=== PATIENT | male | born 1970 | race Caucasian/White ===

== ENCOUNTER 2017-10-04 09:53 | Emergency (ER) | payer OTHER ==
[2017-10-04] MEDS ORDERED: DOXYCYCLINE 100 MG CAP PO ONE (10:39)
--- NOTE | 2017-10-04 11:19 | ER ---
Nurse's Notes [facility] Name: Gian Trujillo Age: 47 yrs Sex: Male : 1970 Arrival Date: 10/04/2017 Time: 09:56 Bed 18 Private MD: Out, [facility] Diagnosis: Laceration without foreign body, left foot;Laceration without foreign body, right foot Presentation: 10/04 10:02 Presenting complaint: Patient states: Yesterday he was walking in the water, and he cut aj1 his feet on some mussel shells, He cleaned it all out yesterday, and again today, but he isn't able to walk around the house because when he steps down on his right foot it starts bleeding again. Transition of care: patient was not received from another setting of care. Onset of symptoms was October 03, 2017 at 10:30. Risk Assessment: Do you want to hurt yourself or someone else? Patient reports no desire to harm self or others. Initial Sepsis Screen: Does the patient meet any 2 criteria? No. Patient's initial sepsis screen is negative. Does the patient have a suspected source of infection? No. Patient's initial sepsis screen is negative. Care prior to arrival: None. 10:02 Method Of Arrival: Wheelchair aj1 10:02 Acuity: DEIDRE 4 aj1 Triage Assessment: 10:09 General: Appears in no apparent distress. uncomfortable, Behavior is calm, cooperative, aj1 appropriate for age. Pain: Complains of pain in right foot Pain currently is 6 out of 10 on a pain scale. Neuro: Level of Consciousness is awake, alert, obeys commands. Cardiovascular: Patient's skin is warm and dry. Respiratory: Airway is patent Respiratory effort is even, unlabored, Respiratory pattern is regular, symmetrical. Injury Description: Laceration sustained to right foot was sustained 1 day ago. 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 Last tetanus immunization: up to date. - Social history:: Smoking status: Patient uses tobacco products, smokes one pack cigarettes per day. - Ebola Screening: : Patient denies travel to an Ebola-affected area in the 21 days before illness onset. Screenin:45 Abuse screen: Denies threats or abuse. Nutritional screening: No deficits noted. em Tuberculosis screening: No symptoms or risk factors identified. Fall Risk None identified. Assessment: 10:30 General: Appears in no apparent distress. comfortable, Behavior is calm, cooperative. em Pain: Complains of pain in right foot Pain currently is 5 out of 10 on a pain scale. Neuro: Level of Consciousness is awake, alert, obeys commands, Oriented to person, place, time, situation. Cardiovascular: Capillary refill < 3 seconds Patient's skin is warm and dry. Respiratory: Airway is patent Respiratory effort is even, unlabored, Respiratory pattern is regular, symmetrical. GI: Abdomen is flat. : No signs and/or symptoms were reported regarding the genitourinary system. Derm: Wound noted arch of right foot. Musculoskeletal: Range of motion: intact in all extremities. 10:30 Injury Description: Laceration sustained to right foot is clean, 2.6 to 7.5 cm long, em was sustained 12-24 hours ago. no active bleeding noted at this time. 10:35 Reassessment: I agree with previous assessment. hb 11:46 Reassessment: Patient appears in no apparent distress at this time. Patient and/or em family updated on plan of care and expected duration. Pain level reassessed. Patient is alert, oriented x 3, equal unlabored respirations, skin warm/dry/pink. cleaned wound, applied elan wrap to right leg. Vital Signs: 10:09 BP 104 / 75; Pulse 82; Resp 18; Temp 98.4; Pulse Ox 97% on R/A; Weight 71.67 kg (R); aj1 Height 5 ft. 10 in. (177.80 cm) (R); Pain 6/10; 11:45 BP 114 / 68; Pulse 81; Resp 16; Pulse Ox 98% on R/A; Pain 4/10; em 10:09 Body Mass Index 22.67 (71.67 kg, 177.80 cm) aj1 ED Course: 09:56 Patient arrived in ED. sb2 09:57 Out, [facility] is Private Physician. sb2 10:07 Triage completed. aj1 10:09 Arm band placed on Patient placed in an exam room. aj1 10:12 Marinas, Adeel, QUALITY SYSTEMS TECHNICIAN is PHCP. pm1 10:12 Vincent Garcia MD is Attending Physician. pm1 10:21 Rei Pichardo LVN is Primary Nurse. em 10:58 X-ray completed. Portable x-ray completed in exam room. Patient tolerated procedure la2 well. 11:00 Foot Right 3 View XRAY In Process Unspecified. EDMS 11:45 Patient has correct armband on for positive identification. Placed in gown. Bed in low em position. Call light in reach. Adult w/ patient. 11:45 No provider procedures requiring assistance completed. Patient did not have IV access em during this emergency room visit. Administered Medications: 10:40 Drug: Doxycycline 100 mg Route: PO; em 11:45 Follow up: Response: No adverse reaction em Outcome: 11:19 Discharge ordered by MD. pm1 11:45 Discharged to home with crutches. em 11:45 Condition: good 11:45 Discharge instructions given to patient, family, Instructed on discharge instructions, follow up and referral plans. medication usage, Demonstrated understanding of instructions, follow-up care, medications, crutch walking, Prescriptions given X 1. 11:48 Patient left the ED. em Signatures: Dispatcher [employer] EDMS Lety Devries RN RN aj1 Rei Pichardo LVN LVN em Adeel Cohen NP QUALITY SYSTEMS TECHNICIAN pm1 Aye Disla RN RN Priscilla Reid la2 Angelique Walls2
--- NOTE | 2017-10-04 11:19 | EDPHYS ---
Physician Documentation [facility] Name: Gian Trujillo Age: 47 yrs Sex: Male : 1970 Arrival Date: 10/04/2017 Time: 09:56 Bed 18 Private MD: Out, [facility] ED Physician Vincent Garcia HPI: 10/04 10:59 This 47 yrs old Male presents to ER via Wheelchair with complaints of Lac To pm1 Feet. 10:59 The patient presents with a laceration, 3 cm(s), to right sole of foot and superficial pm1 2 cm laceration to left sole of foot. Context: [place] resulted from an unknown cause, the patient can fully bear weight, the patient is able to ambulate. Onset: The symptoms/episode began/occurred yesterday, at 09:00. Modifying factors: The symptoms are alleviated by not bearing weight the symptoms are aggravated by weight bearing, on right foot. Associated signs and symptoms: Pertinent negatives: calf tenderness, fever, numbness, tingling. Severity of symptoms: in the emergency department the symptoms have improved. Patient was walking in the water and stepped on something with both feet. Patient was bare footed and believes that it might have been some shells. Injury occurred yesterday morning around 0900 and the patient has been washing it clean. The wounds have started healing up and are improved but when he steps on his right foot he starts causing the right foot wound to bleed. Patient with superficial laceration to left foot that he is able to apply weight with and it does not bleed. Tetanus immunization about 2 years ago. 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 Last tetanus immunization: up to date. - Social history:: Smoking status: Patient uses tobacco products, smokes one pack cigarettes per day. - Ebola Screening: : Patient denies travel to an Ebola-affected area in the 21 days before illness onset. ROS: 11:28 MS/extremity: Positive for laceration of the left foot and right foot, Negative for pm1 deformity, foreign body sensation. 11:28 Constitutional: Negative for fever, chills, and weight loss, Eyes: Negative for injury, pain, redness, and discharge, ENT: Negative for injury, pain, and discharge, Neck: Negative for injury, pain, and swelling, Cardiovascular: Negative for chest pain, palpitations, and edema, Respiratory: Negative for shortness of breath, cough, wheezing, and pleuritic chest pain, Abdomen/GI: Negative for abdominal pain, nausea, vomiting, diarrhea, and constipation, Back: Negative for injury and pain. 11:28 Neuro: Negative for headache, weakness, numbness, tingling, and seizure. 11:28 Skin: Positive for laceration(s), of the left foot and right foot. Exam: 11:28 Constitutional: This is a well developed, well nourished patient who is awake, alert, pm1 and in no acute distress. Head/Face: Normocephalic, atraumatic. Chest/axilla: Normal chest wall appearance and motion. Nontender with no deformity. No lesions are appreciated. Cardiovascular: Regular rate and rhythm with a normal S1 and S2. No gallops, murmurs, or rubs. No pulse deficits. Respiratory: Lungs have equal breath sounds bilaterally, clear to auscultation and percussion. No rales, rhonchi or wheezes noted. No increased work of breathing, no retractions or nasal flaring. Abdomen/GI: Soft, non-tender, with normal bowel sounds. No distension or tympany. No guarding or rebound. No evidence of tenderness throughout. Back: No spinal tenderness. No costovertebral tenderness. Full range of motion. 11:28 Skin: Appearance: normal except for affected area, injury, laceration(s), the wound is approximately 3 cm(s), with a depth of 0.5 cm(s), of the arch of right foot, the second wound is approximately 2 cm(s), with a depth of 0.2 cm(s), of the arch of left foot, that can be described as no foreign body, irregular. 11:28 Neuro: Orientation: is normal, Motor: is normal, moves all fours, Sensation: is normal, no obvious gross deficits, Gait: is steady, at a normal pace, without difficulty. Vital Signs: 10:09 BP 104 / 75; Pulse 82; Resp 18; Temp 98.4; Pulse Ox 97% on R/A; Weight 71.67 kg (R); aj1 Height 5 ft. 10 in. (177.80 cm) (R); Pain 6/10; 11:45 BP 114 / 68; Pulse 81; Resp 16; Pulse Ox 98% on R/A; Pain 4/10; em 10:09 Body Mass Index 22.67 (71.67 kg, 177.80 cm) aj1 MDM: 10:13 Patient medically screened. pm1 11:17 Data reviewed: vital signs. Data interpreted: Pulse oximetry: on room air is 97 %. pm1 Interpretation: normal. Counseling: I had a detailed discussion with the patient and/or guardian regarding: the historical points, exam findings, and any diagnostic results supporting the discharge/admit diagnosis, radiology results, the need for outpatient follow up, to return to the emergency department if symptoms worsen or persist or if there are any questions or concerns that arise at home. 11:17 Special discussion: I discussed with the patient/guardian in detail that at this point pm1 there is no indication for admission to the hospital. It is understood, however, that if the symptoms persist or worsen the patient needs to return immediately for re-evaluation. I discussed in detail with the patient the higher chance of wound infection based on his presenting history. 11:17 ED course: Patient does not want any medications for pain in the ER or prescription. pm1 Patient took an ibuprofen yesterday, none today. 10/04 10:28 Order name: Foot Right 3 View XRAY pm1 10/04 10:28 Order name: Crutches; Complete Time: 10:43 pm1 Administered Medications: 10:40 Drug: Doxycycline 100 mg Route: PO; em 11:45 Follow up: Response: No adverse reaction em Disposition: 14:38 Co-signature as Attending Physician, Vincent Garcia MD. rn Disposition: 10/04/17 11:19 Discharged to Home. Impression: Laceration without foreign body, left foot, Laceration without foreign body, right foot. - Condition is Stable. - Discharge Instructions: Crutch Use, Nonsutured Laceration Care. - Prescriptions for Doxycycline Hyclate 100 mg Oral Tablet - take 1 tablet by ORAL route every 12 hours; 20 tablet. - Medication Reconciliation Form, Thank You Letter, Antibiotic Education, Prescription Opioid Use form. - Follow up: Emergency Department; When: As needed; Reason: Worsening of condition. Follow up: Private Physician; When: 2 - 3 days; Reason: Wound Recheck, Recheck today's complaints, Continuance of care, Re-evaluation by your physician. - Problem is new. - Symptoms have improved. Signatures: Dispatcher [employer] EDLety Valle RN RN aj1 Rei Pichardo, MEDICAL SALES CONSULTANT MEDICAL SALES CONSULTANT em Vincent Garcia MD MD rn Marinas, Patrick, ACCOUNTING RECRUITER ACCOUNTING RECRUITER pm1 Corrections: (The following items were deleted from the chart) 11:48 11:19 10/04/2017 11:19 Discharged to Home. Impression: Laceration without foreign body, em left foot; Laceration without foreign body, right foot. Condition is Stable. Forms are Medication Reconciliation Form, Thank You Letter, Antibiotic Education, Prescription Opioid Use. Follow up: Emergency Department; When: As needed; Reason: Worsening of condition. Follow up: Private Physician; When: 2 - 3 days; Reason: Wound Recheck, Recheck today's complaints, Continuance of care, Re-evaluation by your physician. Problem is new. Symptoms have improved. pm1
--- NOTE | 2017-10-04 12:43 | RAD REPORT ---
EXAM DESCRIPTION: RAD - Foot Right 3 View - 10/04/2017 11:00 am CLINICAL HISTORY: Laceration plantar surface of the foot, possible foreign body COMPARISON: None. FINDINGS: No fracture, dislocation or periosteal reaction. No air or foreign body in the soft tissues. IMPRESSION: Negative right foot examination.
== END 2017-10-04 11:48 | disposition home or self-care (01) ==
LOC: ER 09:53
DX: S91.311A Laceration without foreign body, right foot, initial encounter (principal); W26.9XXA Contact with unspecified sharp object(s), initial encounter; Y93.01 Activity, walking, marching and hiking; Y92.832 Beach as the place of occurrence of the external cause; F17.210 Nicotine dependence, cigarettes, uncomplicated
CPT/HCPCS: 99284